=== PATIENT | male | born 1980 | race Caucasian/White ===

== ENCOUNTER 2018-11-15 17:34 | Emergency (ER) | payer OTHER ==
[~2018-11-15] VITALS: Ht 188 cm; Wt 127.0 kg
[2018-11-15] MEDS ORDERED: PENICILLIN V P500 MG PO (21:28)
[2018-11-15] MEDS ORDERED: NORCO 5-325 TA1 EAC1 PO (21:28)
[2018-11-15] MEDS ORDERED: LISINOPRIL20 MG PO (21:28)
[2018-11-15 21:30] VITALS: BP 176/99
== END 2018-11-15 21:37 ==
LOC: ER 17:34
DX: I16.0 Hypertensive urgency (principal); K01.1 Impacted teeth; I10 Essential (primary) hypertension; Z87.442 Personal history of urinary calculi

== ENCOUNTER 2021-07-05 19:22 | Emergency (ER) | payer OTHER ==
[~2021-07-05] VITALS: Ht 188 cm; Wt 136.1 kg
[~2021-07-05 19:22] MED LIST: LISINOPRIL20 MG PO; NORCO 5-325 TA1 EAC1 PO; PENICILLIN V P500 MG PO
[2021-07-05] MEDS ORDERED: NOHOMEMEDICATIONS (19:33)
[2021-07-05] MEDS ORDERED: NORCO5 PO ×2 (20:03→20:23)
[2021-07-05] MEDS ORDERED: IBUPROFEN 800800 MG PO (20:03)
[2021-07-05] MEDS ORDERED: AMOX TR-K CLV1 EAC4 PO (20:03)
[2021-07-05] MEDS ORDERED: NORVASC5 MG PO (20:03)
[2021-07-05 20:36] VITALS: BP 208/124
== END 2021-07-05 20:36 | disposition home or self-care (01) ==
LOC: ER 19:22
DX: K08.89 Other specified disorders of teeth and supporting structures (principal); R51.9 Headache, unspecified; I10 Essential (primary) hypertension; Z87.442 Personal history of urinary calculi